=== PATIENT | female | born 1950 | race Caucasian/White ===

== ENCOUNTER 2017-02-10 12:11 | Observation (INO) | payer OTHER ==
[~2017-02-10] VITALS: Ht 170.2 cm; Wt 71.2 kg
[~2017-02-10 12:11] MED LIST: ADVAIR DISKU1 INH; ALBUTEROL2.5 MG/3 M IN; ALPRAZOLAM0.5 MG PO; ATENOLOL100 MG PO; CARAFATE E1 GM/10 ML PO; CELEBREX200 MG PO; CYMBALTA60 MG PO; HYDROCHLOROTHIA25 MG PO; KLOR-CON 1010 MEQ PO; LYRICA100 MG PO; NORCO1 TA1 PO; NORVASC5 MG PO; OMEPRAZOLE40 MG PO; PATIENT'S OWN MEDICA PO; SPIRIVA18 MCG INH; UCERIS9 MG PO; VENTOLIN HFA IN; [UNRECOGNIZED DRUG - OTHER] PO
--- NOTE | 2017-02-10 13:43 | DIAGNOSTIC IMAGING REPORT ---
PROCEDURE: XR CHEST 1 VIEW INDICATION: COPD TECHNIQUE: Single view. COMPARISON: 08/18/2015 FINDINGS: The cardiomediastinal contour is normal. No central venous congestion. The pulmonary arteries are prominent. The lungs hyperinflated and demonstrate left base atelectatic changes with slight clearance of the right base plate-like atelectatic change seen previously. No dense consolidation, pleural effusion or pneumothorax. The osseous structures are intact. IMPRESSION: 1. Mild plate-like atelectasis left lung base with clearance of right base atelectasis. 2. Findings of mild COPD/emphysema.
--- NOTE | 2017-02-10 15:40 | ED NURSING NOTES ---
Clinical Report - Nurses [facility] [address] [place] [address] 02/10/2017 12:11 Patient: CAITY DAVALOS TRIAGE Triage time 12:17. Acuity: LEVEL 3. Chief Complaint: SHORTNESS OF BREATH and DIFFICULTY BREATHING. 12:18 02/10/17. 12:18 02/10/17. Alert. SEPSIS SCREEN: Sepsis Screen. Negative (no infection suspected/documented). --12:38 Neptali Mock R.N. 12:17 02/10/17. BP: 153/74. HR: 80. RR: 18. O2 saturation: 96% on nasal cannula at 2 liters/minute. Temp: 98.2 F (oral). --12:38 Neptali Mock R.N. Weight: 70.3 kg stated. Height/Length: 67 inches Per Patient. BMI: 24.3. --12:17 Neptali Mock R.N. Medications Actonel Oral (Tablet 35 mg) 1 tablet, weekly. --12:26 Neptali Mock R.N. Advair Diskus Inhalation 2 puffs, 2x a day as needed. --12:26 Neptali Mock R.N. Albuterol-Ipratropium Inhalation, [facility]. --12:27 Neptali Mock R.N. Actonel Oral (Tablet 35 mg) 1 tablet, weekly. --12:27 Neptali Mock R.N. Albuterol Sulfate 2.5mg/3mLs, 4x a day, prn SOB. --12:28 Neptali Mock R.N. ALPRAZolam Oral 0.5 mg, daily as needed. --12:29 Neptali Mock R.N. Atenolol Oral 100 mg, daily. --12:29 Neptali Mock R.N. CeleBREX Oral 200 mg, daily as needed. --12:29 Neptali Mock R.N. Cymbalta Oral 60mg, Daily. --12:30 Neptali Mock R.N. Daliresp Oral (Tablet 500 mcg) 1 tablet, daily. --12:30 Neptali Mock R.N. Hydrochlorothiazide Oral 25 mg, daily. --12:30 Neptali Mock R.N. Klor-Con 10 Oral (Tablet Extended Release 10 meq) 2 tablets, daily. --12:31 Neptali Mock R.N. Norvasc Oral 5 mg, daily. --12:31 Neptali Mock R.N. Omeprazole Oral 40 mg, daily. --12:31 Neptali Mock R.N. Spiriva HandiHaler Inhalation (Capsule 18 mcg) 1 capsule, daily. --12:32 Neptali Mock R.N. Theophylline ER Oral 300mg, two times a day. --12:32 Neptali Mock R.N. Uceris Oral 9mg, daily. --12:33 Neptali Mock R.N. Ventolin HFA Inhalation 2 puffs, daily as needed. --12:33 Neptali Mock R.N. Lyrica Oral 150mg , two caps two times a day. --12:34 Neptali Mock R.N. Carafate Oral 100mg/mL, , 10 mLs 4 times a day one hour before meals. --12:34 Neptali Mock R.N. Tramadol HCL Oral 50 mg, , 1-2 orally two times a day as needed. --12:35 Neptali Mock R.N. The following entry was struck by Neptali Mock R.N., 14:13 (02/10/17) Reason - other. <<STRICKEN ENTRY-- Tramadol HCL Oral 50 mg, , 1-2 orally two times a day as needed. --12:35 Neptali Mock R.N. --END STRIKE>> The following entry was struck by Neptali Mock R.N., 14:13 (02/10/17) Reason - other. <<STRICKEN ENTRY-- Tramadol HCL Oral 50 mg, , 1-2 orally two times a day as needed. --12:35 Neptali Mock R.N. --END STRIKE>> The following entry was struck by Neptali Mock R.N., 14:13 (02/10/17) Reason - other. <<STRICHEATH ENTRY-- Tramadol HCL Oral 50 mg, , 1-2 orally two times a day as needed. --12:35 Neptali Mock R.N. --END STRIKE>> The following entry was struck by Neptali Mock R.N., 14:13 (02/10/17) Reason - other. <<STRICHEATH ENTRY-- Tramadol HCL Oral 50 mg, , 1-2 orally two times a day as needed. --12:35 Neptali Mock R.N. --END STRIKE>> The following entry was struck by Neptali Mock R.N., 14:13 (02/10/17) Reason - other. <<LASHELL ENTRY-- Tramadol HCL Oral 50 mg, , 1-2 orally two times a day as needed. --12:35 Neptali Mock R.N. --END STRIKE>> The following entry was struck by Neptali Mock R.N., 14:12 (02/10/17) Reason - other. <<LASHELL ENTRY-- Tramadol HCL Oral 50 mg, , 1-2 orally two times a day as needed. --12:35 Neptali Mock R.N. --END STRIKE>> The following entry was struck by Neptali Mock R.N., 14:12 (02/10/17) Reason - other. <<LASHELL ENTRY-- Tramadol HCL Oral 50 mg, , 1-2 orally two times a day as needed. --12:35 Neptali Mock R.N. --END STRIKE>>. Medication/allergy information source: the patient. --12:38 Neptali Mock R.N. Allergies No Known Drug Allergy. --12:20 Neptali Mock R.N. History Arrived by private vehicle. Historian: patient. Accompanied by family. Primary physician (Salvador). 12:18 02/10/17. ( Wednesday night SOB, pt with history of COPD. Went to PCP who sent pt here.). Treatment DRAPERY INSPECTOR: (Nebulizer). PAST MEDICAL HX: Immunizations: up-to-date. SOCIAL HX: Smoker- current status unknown (18 months ago quit). Regular alcohol use; consumes four beers a day. No drug use. No infectious disease exposure. ABUSE ASSESSMENT: No report of abuse. FALL RISK ASSESSMENT: Fall risk assessment completed. No fall risk identified. NUTRITIONAL RISK ASSESSMENT: The nutritional risk assessment revealed no deficiencies. FUNCTIONAL ASSESSMENT: Functional assessment: no impairments noted. LEARNING NEEDS ASSESSMENT: The learning needs assessment revealed no barriers. SKIN INTEGRITY ASSESSMENT: Skin integrity risk assessment completed. No skin integrity risk identified. --12:38 Neptali Mock R.N. PROBLEMS: COPD - Chronic Obstructive Pulmonary Disease. Hypertension. --12:21 Neptali Mock R.N. Stress incontinence. --12:22 Neptali Mock R.N. Fibromyalgia. --12:22 Neptali Mock R.N. Raynaud's Phenomenon. --12:23 Neptali Mock R.N. Asthma. Colitis. Esophagitis. Degenerative Joint Disease. --12:24 Neptali Mock R.N. Home oxygen. --12:25 Neptali Mock R.N. ADDITIONAL SURGERIES: Appendectomy. Hysterectomy. Tonsillectomy. --12:24 Neptali Mock R.N. Abd Surgery. Back Surgery. --12:25 Neptali Mock R.N. Assessment 12:18 02/10/17. --12:38 Neptali Mock R.N. Interventions 12:18 02/10/17. 12:02/10/17. ID and allergy band on patient. To treatment room. --12:38 Neptali Mock R.N. PHYSICAL ASSESSMENT 12:19 02/10/17. To room via wheelchair. GENERAL / NEURO / PSYCH: Alert. Oriented X 4. RESPIRATORY: No respiratory distress. Mild respiratory distress. The patient can speak in full sentences. SKIN: Skin is warm and dry. --12:19 Neptali Mock R.N. NURSING PROGRESS NOTES 12:20 02/10/17. The plan of care for this patient has been created. vehicle monitor technician, pulse oximeter and NIBP monitor placed on patient; monitor alarms on. Patient gowned. Head of bed elevated. Two patient identifiers checked. Call light placed in reach. Side rails up x 2. Bed placed in lowest position. Brakes of bed on. --12:20 Neptali Mock R.N. 12:20 02/10/17. Patient ready for evaluation- chart flagged and notification provided. --12:20 Neptali Mock R.N. 12:23 02/10/17. EKG time: (1224 PM). EKG was ordered, performed by a tech and shown to the ED physician. --12:23 Neptali Mock R.N. 13:02 02/10/2017 ALBUTEROL NEB W ATROVENT Neb TX 1 unit dose given. Given by the respiratory therapist. Allergies verified and confirmed 5 rights. --13:07 Neptali Mock R.N. 13:03 02/10/2017 Site #1 started via IV in the left antecubital space with an 20g angiocath, with aseptic technique and good blood return; one attempt. Blood drawn: rainbow set. Labeled in the presence of the patient and sent to the lab. Saline lock flushed with 10 mL saline. --13:13 Neptali Mock R.N. 13:17 02/10/17. Cardiac rhythm: normal sinus rhythm. --13:17 Neptali Mock R.N. 13:17 02/10/17. ( Pre peak flow 100, post neb 200 peak flow). --13:18 Neptali Mock R.N. 14:08 02/10/2017 SOLU-MEDROL (MethylPREDNISolone Sodium Succ) IVP 125 mg given over 2 minute(s) via site #1. Allergies verified and confirmed 5 rights. IV patency established. IV site checked: no pain, redness, or swelling. IV flushed thoroughly pre- and post-medication administration. IVP given by RN. --14:08 Neptali Mock R.N. 14:02/10/17. Cardiac rhythm: normal sinus rhythm. --14:09 Neptali Mock R.N. 14:02/10/17. BP: 150/84. HR: 84. RR: 18. O2 saturation: 97% on nasal cannula at 2 liters/minute. --14:09 Neptali Mock R.N. 14:14 02/10/2017 Toradol IVP 30 mg given over 2 minute(s) via site #1. Allergies verified and confirmed 5 rights. IV patency established. IV site checked: no pain, redness, or swelling. IV flushed thoroughly pre- and post-medication administration. IVP given by RN. --14:14 Neptali Mock R.N. 14:22 02/10/2017 Started 2 gm of Rocephin (CefTRIAXone Sodium) IVPB in bag #1 50 mL; at 100 mL/hr over 20 minute(s) via site #1; Allergies verified and confirmed 5 rights. IV patency established. IV site checked: no pain, redness, or swelling. IV flushed thoroughly pre- and post-medication administration. Completed per protocol. --14:22 Neptali Mock R.N. 14:02/10/17. ( Blood culture drawn, abx started). --14:22 Neptali Mock R.N. 14:23 02/10/17. Cardiac rhythm: normal sinus rhythm. --14:23 Neptali Mock R.N. 14:02/10/17. HR: 76. RR: 17. O2 saturation: 100% on nasal cannula at 2 liters/minute. --14:23 Neptali Mock R.N. 14:31 02/10/2017 Rocephin IVPB Discontinued: bag #1 infused. Total amount infused: 50 mL. IV patency established. IV site checked: no pain, redness, or swelling. IV flushed thoroughly. --14:31 Neptali Mock R.N. 14:32 02/10/2017 Started 500 mg of Zithromax (Azithromycin) IVPB in bag #1 250 mL; at 175 mL/hr over 1.5 hour(s) via site #1; Allergies verified and confirmed 5 rights. IV patency established. IV site checked: no pain, redness, or swelling. IV flushed thoroughly pre- and post-medication administration. Completed per protocol. --14:32 Neptali Mock R.N. 14:39 02/10/17. Patient and family informed about reason for wait and about plan of care. --14:39 Neptali Mock R.N. 15:12 02/10/17. Cardiac rhythm: normal sinus rhythm. --15:12 Neptali Mock R.N. 15:11 02/10/17. BP: 151/90. HR: 80. RR: 16. O2 saturation: 98% on nasal cannula at 2 liters/minute. --15:12 Neptali Mock R.N. 15:42 02/10/2017 Dilaudid (HYDROmorphone HCl PF) IVP 0.5 mg given over 2 minute(s) via site #1. Allergies verified, confirmed 5 rights and sedative warning given to the patient. IV patency established. IV site checked: no pain, redness, or swelling. IV flushed thoroughly pre- and post-medication administration. IVP given by RN. --15:52 Neptali Mock R.N. 15:48 02/10/17. ( Pt to be admitted). --15:48 Neptali Mock R.N. 15:48 02/10/17. Patient and family informed about reason for wait and about plan of care. --15:48 Npetali Mock R.N. 17:21 02/10/17. ( Pt ambulated to bathroom and back to room, became SOB, placed back in room with oxygen sats brought up to 98% on 2LNC). --17:21 Neptali Mock R.N. DISPOSITION / DISCHARGE 16:56 02/10/2017 Site #[address] upon transfer; patent. --16:56 Neptali Mock R.N. 16:59 02/10/17. The goals identified in the patient's plan of care were met. Transported via stretcher by transport team with IV and O2. Report was given. Bed requested. Bed obtained. Patient's personal items include, pants, glasses. FALL RISK ASSESSMENT: Fall risk assessment completed. No fall risk identified. --17:01 Neptali Mock R.N. 16:56 02/10/17. BP: 151/71. HR: 80. RR: 18. O2 saturation: 98% on nasal cannula at 2 liters/minute. Temp: 98.2 F (oral). Pain level now: 10/23. --17:01 Neptali Mock R.N. 17:02 02/10/17. Patient's personal items include, Denies having money with patient, cell phone. --17:02 Neptali Mock R.N. Departure time: 17:Feb 10 2017. --17:29 Neptali Mock R.N. Locked/Released at 02/10/2017 17:29 by Neptali Mock R.N.
--- NOTE | 2017-02-10 15:40 | ED CLINICAL REPORT ---
Clinical Report - Physicians/Mid Levels [facility] [address] [place] [address] 02/10/2017 12:11 [id number] Time Seen: 12:53 [place] 2016. Arrived- By private vehicle. Historian- patient. CPT: ER phys charges level 5 plus (#[id number]). EKG interpretation (#[id number]). HISTORY OF PRESENT ILLNESS Chief Complaint: DYSPNEA and HISTORY OF CHRONIC OBSTRUCTIVE PULMONARY DISEASE. 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 The dyspnea is described as moderate and is worsened by walking and exertion, is improved by rest and is improved with oxygen. The patient has had a cough, chest discomfort, dyspnea on exertion and anxiety. She has had moderate amounts of yellow sputum. There has been a change from baseline. No dizziness, tingling, numbness or palpitations. Similar symptoms previously: Milder. Diagnosis: chronic obstructive pulmonary disease. Recent medical care: The patient was seen recently at another facility in the office (today: [facility]). Seen for similar symptoms. Evaluation/treatment: x-rays and labs. Diagnosis: chronic obstructive pulmonary disease. REVIEW OF SYSTEMS No muscle aches, eye irritation, sore throat or throat or nasal discharge. No sinus drainage, nausea, vomiting, abdominal pain or diarrhea. No black stools, bloody stools, fainting episodes, difficulty with urination or skin rash. No enlarged lymph nodes, diabetic symptoms or easy bruising. The patient has had difficulty walking. She has had weakness. Mid-back pain radiating around to both sides. All systems otherwise negative, except as recorded above. PAST HISTORY Hypertension. Pneumonia. No history of renal failure, congestive heart failure, heart disease, neurological disease or GI disease. Chronic obstructive pulmonary disease. Medications: Tramadol HCL Oral 50 mg, , 1-2 orally two times a day as needed. Tramadol HCL Oral 50 mg, , 1-2 orally two times a day as needed. Tramadol HCL Oral 50 mg, , 1-2 orally two times a day as needed. Tramadol HCL Oral 50 mg, , 1-2 orally two times a day as needed. Tramadol HCL Oral 50 mg, , 1-2 orally two times a day as needed. Tramadol HCL Oral 50 mg, , 1-2 orally two times a day as needed. Tramadol HCL Oral 50 mg, , 1-2 orally two times a day as needed. Tramadol HCL Oral 50 mg, , 1-2 orally two times a day as needed. Carafate Oral 100mg/mL, , 10 mLs 4 times a day one hour before meals. Lyrica Oral 150mg , two caps two times a day. Ventolin HFA Inhalation 2 puffs, daily as needed. Uceris Oral 9mg, daily. Theophylline ER Oral 300mg, two times a day. Spiriva HandiHaler Inhalation (Capsule 18 mcg) 1 capsule, daily. Omeprazole Oral 40 mg, daily. Norvasc Oral 5 mg, daily. Klor-Con 10 Oral (Tablet Extended Release 10 meq) 2 tablets, daily. Hydrochlorothiazide Oral 25 mg, daily. Daliresp Oral (Tablet 500 mcg) 1 tablet, daily. Cymbalta Oral 60mg, Daily. CeleBREX Oral 200 mg, daily as needed. Atenolol Oral 100 mg, daily. ALPRAZolam Oral 0.5 mg, daily as needed. Albuterol Sulfate 2.5mg/3mLs, 4x a day, prn SOB. Actonel Oral (Tablet 35 mg) 1 tablet, weekly. Albuterol-Ipratropium Inhalation, neb. Advair Diskus Inhalation 2 puffs, 2x a day as needed. Actonel Oral (Tablet 35 mg) 1 tablet, weekly. Allergies: No Known Drug Allergy. SOCIAL HISTORY Former smoker. ADDITIONAL NOTES The nursing notes have been reviewed. PHYSICAL EXAM Vital Signs: 02/10/2017 12:17 BP: 153/74. HR: 80. RR: 18. O2 saturation: 96%. Temp: 98.2 F. Appearance: Alert. Anxious. Patient in moderate distress. Eyes: Eyes normal inspection. ENT: Nose normal. Pharynx normal. Neck: Normal inspection. CVS: Normal heart rate and rhythm. Heart sounds normal. Pulses normal. Respiratory: Moderate respiratory distress with anxiety and tachypnea. Expiratory moderate bilateral wheezes diffusely. Abdomen: Soft and nontender. Back: Normal inspection. Skin: Skin warm. Normal skin color. No rash. Extremities: Extremities exhibit normal ROM. No calf tenderness. No lower extremity edema. Neuro: Oriented X 3. No motor deficit. No sensory deficit. LABS, X-RAYS, AND EKG EKG: Normal EKG. Chest X-ray: (Plate atx vs early infiltrate. Modearte COPD.). Views: AP (portable). Technique: good. The X-rays were independently viewed by me and interpreted by the radiologist. Laboratory Tests: CBC w Diff: (NGOZI: 02/10/2017 13:00) ( [facility] 02/10/2017 13:20) Final results Test Result Flag Units (Reference) WHITE BLOOD COUNT 6.4 K/uL (4.5-11.5) RED BLOOD COUNT 4.22 M/uL (4.00-5.20) HEMOGLOBIN 12.1 gm/dL (12.0-16.0) HEMATOCRIT 36.5 % (36.0-46.0) MEAN CELL VOLUME 87 fL (80-100) MEAN CORPUSCULAR HGB 29 pg (26-34) MEAN CORPUSCULAR HGB CONC 33 g/dL (31-37) RED CELL DISTRIBUTION WIDTH 13.5 % (11.6-14.8) PLATELET COUNT 394 K/uL (150-400) NEUTROPHIL % 62.5 % (50-75) LYMPH % 22.6 L % (25-40) MONO % 12.4 % (3-14) EOSINOPHIL % 2.0 % (0-4) BASOPHIL % 0.5 % (0-2) [id number]: (NGOZI: 02/10/2017 13:00) ( [facility] 02/10/2017 14:16) Final results Test Result Flag Units (Reference) D-DIMER QUANTITATIVE 0.43 ug/mLFEU (0.27-0.52) The primary value of this quantitative assay relates toits negative predictive value (i.e. exclusion) of pulmonaryembolism/deep vein thrombosis/DIC.Elevated levels of d-dimer may also occur with:, age, cancer, inflammation, liver disease,post-op, infection, hematoma, coronary disease, peripheralarteriopathy, bleeding disorders and thrombolytic treatment.Results should be correlated with other clinical andradiological data.Testing Methodology: Latex Immunoassay CMP: (NGOZI: 02/10/2017 13:00) ( [facility]cvd 02/10/2017 14:26) Final results Test Result Flag Units (Reference) GLUCOSE 98 mg/dL (70-110) BUN 9 mg/dL (7-18) CREATININE 0.6 mg/dL (0.6-1.3) Estimated GFR >60 mL/min Estimated GFR- >60 mL/min Note: Persistent reduction over 3 months in eGFR<60 mL/min/1.73 m2 defines CKD. Patients with eGFR values>=60 mL/min/1.73 m2 may also have CKD if evidence ofpersistent proteinuria. Additional information may be foundat www.[email or web address].org. SODIUM 138 mmol/L (136-145) POTASSIUM 3.7 mmol/L (3.5-5.1) CHLORIDE 98 mmol/L (98-107) CARBON DIOXIDE 30 mmol/L (21-32) CALCIUM 9.2 mg/dL (8.5-10.1) TOTAL PROTEIN 7.6 g/dL (6.4-8.2) ALBUMIN 3.9 g/dL (3.3-5.0) BILIRUBIN, TOTAL 0.4 mg/dL (0.0-1.0) ALKALINE PHOSPHATASE 83 U/L (46-116) AST (SGOT) 42 H U/L (15-37) ALT (SGPT) 39 U/L (12-78) CPK 98 U/L (24-260) TROPONIN I <0.05 L ng/mL (0.00-1.5) TROPONIN REFERENCE RANGE:<0.1 NEGATIVE0.1-1.5 INDETERMINANT>1.5 POSITIVE . PROGRESS AND PROCEDURES Course of Care: patient indicates her usual ambulation tolerance is across her house. Today she couldn't get up and ambulated WITHOUT assistance. IV Solumedrol 125 mg IV Rocephin 2g IV] Zithromax 500 mg IV. Discussed case with patient's primary care provider, (Salvador). Reviewed test results. Agreed upon treatment plan and decision to admit. Health care provider will see patient in hospital. Patient/family counseled. Old medical records ordered. Disposition orders written. Disposition: Admitted to Acute Care. CLINICAL IMPRESSION Acute exacerbation of COPD (emphysematous) (Electronically signed by Jacob Israel MD 02/10/2017 21:56)
--- NOTE | 2017-02-10 15:40 | ED CLINICAL REPORT ---
Clinical Report - Physicians/Mid Levels [facility] [address] [place] [address] 02/10/2017 12:11 [id number] Time Seen: 12:53 [place] 2016. Arrived- By private vehicle. Historian- patient. CPT: ER phys charges level 5 plus (#[id number]). EKG interpretation (#[id number]). HISTORY OF PRESENT ILLNESS Chief Complaint: DYSPNEA and HISTORY OF CHRONIC OBSTRUCTIVE PULMONARY DISEASE. 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 The dyspnea is described as moderate and is worsened by walking and exertion, is improved by rest and is improved with oxygen. The patient has had a cough, chest discomfort, dyspnea on exertion and anxiety. She has had moderate amounts of yellow sputum. There has been a change from baseline. No dizziness, tingling, numbness or palpitations. Similar symptoms previously: Milder. Diagnosis: chronic obstructive pulmonary disease. Recent medical care: The patient was seen recently at another facility in the office (today: [facility]). Seen for similar symptoms. Evaluation/treatment: x-rays and labs. Diagnosis: chronic obstructive pulmonary disease. REVIEW OF SYSTEMS No muscle aches, eye irritation, sore throat or throat or nasal discharge. No sinus drainage, nausea, vomiting, abdominal pain or diarrhea. No black stools, bloody stools, fainting episodes, difficulty with urination or skin rash. No enlarged lymph nodes, diabetic symptoms or easy bruising. The patient has had difficulty walking. She has had weakness. Mid-back pain radiating around to both sides. All systems otherwise negative, except as recorded above. PAST HISTORY Hypertension. Pneumonia. No history of renal failure, congestive heart failure, heart disease, neurological disease or GI disease. Chronic obstructive pulmonary disease. Medications: Tramadol HCL Oral 50 mg, , 1-2 orally two times a day as needed. Tramadol HCL Oral 50 mg, , 1-2 orally two times a day as needed. Tramadol HCL Oral 50 mg, , 1-2 orally two times a day as needed. Tramadol HCL Oral 50 mg, , 1-2 orally two times a day as needed. Tramadol HCL Oral 50 mg, , 1-2 orally two times a day as needed. Tramadol HCL Oral 50 mg, , 1-2 orally two times a day as needed. Tramadol HCL Oral 50 mg, , 1-2 orally two times a day as needed. Tramadol HCL Oral 50 mg, , 1-2 orally two times a day as needed. Carafate Oral 100mg/mL, , 10 mLs 4 times a day one hour before meals. Lyrica Oral 150mg , two caps two times a day. Ventolin HFA Inhalation 2 puffs, daily as needed. Uceris Oral 9mg, daily. Theophylline ER Oral 300mg, two times a day. Spiriva HandiHaler Inhalation (Capsule 18 mcg) 1 capsule, daily. Omeprazole Oral 40 mg, daily. Norvasc Oral 5 mg, daily. Klor-Con 10 Oral (Tablet Extended Release 10 meq) 2 tablets, daily. Hydrochlorothiazide Oral 25 mg, daily. Daliresp Oral (Tablet 500 mcg) 1 tablet, daily. Cymbalta Oral 60mg, Daily. CeleBREX Oral 200 mg, daily as needed. Atenolol Oral 100 mg, daily. ALPRAZolam Oral 0.5 mg, daily as needed. Albuterol Sulfate 2.5mg/3mLs, 4x a day, prn SOB. Actonel Oral (Tablet 35 mg) 1 tablet, weekly. Albuterol-Ipratropium Inhalation, neb. Advair Diskus Inhalation 2 puffs, 2x a day as needed. Actonel Oral (Tablet 35 mg) 1 tablet, weekly. Allergies: No Known Drug Allergy. SOCIAL HISTORY Former smoker. ADDITIONAL NOTES The nursing notes have been reviewed. PHYSICAL EXAM Vital Signs: 02/10/2017 12:17 BP: 153/74. HR: 80. RR: 18. O2 saturation: 96%. Temp: 98.2 F. Appearance: Alert. Anxious. Patient in moderate distress. Eyes: Eyes normal inspection. ENT: Nose normal. Pharynx normal. Neck: Normal inspection. CVS: Normal heart rate and rhythm. Heart sounds normal. Pulses normal. Respiratory: Moderate respiratory distress with anxiety and tachypnea. Expiratory moderate bilateral wheezes diffusely. Abdomen: Soft and nontender. Back: Normal inspection. Skin: Skin warm. Normal skin color. No rash. Extremities: Extremities exhibit normal ROM. No calf tenderness. No lower extremity edema. Neuro: Oriented X 3. No motor deficit. No sensory deficit. LABS, X-RAYS, AND EKG EKG: Normal EKG. Chest X-ray: (Plate atx vs early infiltrate. Modearte COPD.). Views: AP (portable). Technique: good. The X-rays were independently viewed by me and interpreted by the radiologist. Laboratory Tests: CBC w Diff: (NGOZI: 02/10/2017 13:00) ( [facility] 02/10/2017 13:20) Final results Test Result Flag Units (Reference) WHITE BLOOD COUNT 6.4 K/uL (4.5-11.5) RED BLOOD COUNT 4.22 M/uL (4.00-5.20) HEMOGLOBIN 12.1 gm/dL (12.0-16.0) HEMATOCRIT 36.5 % (36.0-46.0) MEAN CELL VOLUME 87 fL (80-100) MEAN CORPUSCULAR HGB 29 pg (26-34) MEAN CORPUSCULAR HGB CONC 33 g/dL (31-37) RED CELL DISTRIBUTION WIDTH 13.5 % (11.6-14.8) PLATELET COUNT 394 K/uL (150-400) NEUTROPHIL % 62.5 % (50-75) LYMPH % 22.6 L % (25-40) MONO % 12.4 % (3-14) EOSINOPHIL % 2.0 % (0-4) BASOPHIL % 0.5 % (0-2) [id number]: (NGOZI: 02/10/2017 13:00) ( [facility] 02/10/2017 14:16) Final results Test Result Flag Units (Reference) D-DIMER QUANTITATIVE 0.43 ug/mLFEU (0.27-0.52) The primary value of this quantitative assay relates toits negative predictive value (i.e. exclusion) of pulmonaryembolism/deep vein thrombosis/DIC.Elevated levels of d-dimer may also occur with:, age, cancer, inflammation, liver disease,post-op, infection, hematoma, coronary disease, peripheralarteriopathy, bleeding disorders and thrombolytic treatment.Results should be correlated with other clinical andradiological data.Testing Methodology: Latex Immunoassay CMP: (NGOZI: 02/10/2017 13:00) ( [facility] 02/10/2017 14:26) Final results Test Result Flag Units (Reference) GLUCOSE 98 mg/dL (70-110) BUN 9 mg/dL (7-18) CREATININE 0.6 mg/dL (0.6-1.3) Estimated GFR >60 mL/min Estimated GFR- >60 mL/min Note: Persistent reduction over 3 months in eGFR<60 mL/min/1.73 m2 defines CKD. Patients with eGFR values>=60 mL/min/1.73 m2 may also have CKD if evidence ofpersistent proteinuria. Additional information may be foundat www.kidney.org. SODIUM 138 mmol/L (136-145) POTASSIUM 3.7 mmol/L (3.5-5.1) CHLORIDE 98 mmol/L (98-107) CARBON DIOXIDE 30 mmol/L (21-32) CALCIUM 9.2 mg/dL (8.5-10.1) TOTAL PROTEIN 7.6 g/dL (6.4-8.2) ALBUMIN 3.9 g/dL (3.3-5.0) BILIRUBIN, TOTAL 0.4 mg/dL (0.0-1.0) ALKALINE PHOSPHATASE 83 U/L (46-116) AST (SGOT) 42 H U/L (15-37) ALT (SGPT) 39 U/L (12-78) CPK 98 U/L (24-260) TROPONIN I <0.05 L ng/mL (0.00-1.5) TROPONIN REFERENCE RANGE:<0.1 NEGATIVE0.1-1.5 INDETERMINANT>1.5 POSITIVE . PROGRESS AND PROCEDURES Course of Care: patient indicates her usual ambulation tolerance is across her house. Today she couldn't get up and ambulated WITHOUT assistance. IV Solumedrol 125 mg IV Rocephin 2g IV] Zithromax 500 mg IV. Discussed case with patient's primary care provider, (Salvador). Reviewed test results. Agreed upon treatment plan and decision to admit. Health care provider will see patient in hospital. Patient/family counseled. Old medical records ordered. Disposition orders written. Disposition: Admitted to Acute Care. CLINICAL IMPRESSION Acute exacerbation of COPD (emphysematous) (Electronically signed by Jacob Israel MD 02/10/2017 21:56)
--- NOTE | 2017-02-10 15:41 | ED ORDER SUMMARY ---
..... 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 per protocol) (12:57 JBoardley R.N.) Oxygen (2 L/min) (NC) (12:57 02/10/2017 JBoardley R.N. per protocol) (12:57 JBoardley R.N.) Pulse oximeter (12:57 02/10/2017 JBoardley R.N. per protocol) (12:57 JBoardley R.N.) EKG - ER Stat (12:57 02/10/2017 JBoardley R.N. per protocol) (12:57 JBoardley R.N.) Chest 1V Urgent (13:07 02/10/2017 JBoardley R.N. per protocol) (Ack 13:09 KHoerner) (13:18 JBoardley R.N.) CBC w Diff Urgent (13:07 02/10/2017 JBoardley R.N. per protocol) (Ack 13:09 KHoerner) (13:13 JBoardley R.N.) CMP Urgent (13:07 02/10/2017 JBoardley R.N. per protocol) (Ack 13:09 KHoerner) (13:13 JBoardley R.N.) CPK Urgent (14:01 02/10/2017 Cindy RAMOS) (14:01 KHoerner) Troponin-I Urgent (14:02/10/2017 Cindy RAMOS) (14:01 KHoerner) Blood Culture (No) (N/A) Urgent (14:01 02/10/2017 Cindy RAMOS) (Ack 14:05 KHoerner) (14:16 KHoerner) D-Dimer Urgent (14:04 02/10/2017 Cindy RAMOS) (14:04 Ella) MEDICATION ORDERS: Albuterol Neb w Atrovent 1 unit dose with peak flow pre and post (NOW) (12:58 02/10/2017 Sunshine R.N. verbal order read back to Cindy RAMOS) (13:07 SRINIVASAoarkeara R.N.) IV FLUIDS: IV Saline Lock (12:57 02/10/2017 JBarnoldo R.N. per protocol) (Ack 12:57 SRINIVASAoardley R.N.) (13:13 SRINIVASAoardley R.N.) Solu-MEDROL IV 125 mg (NOW) (14:01 02/10/2017 Cindy RAMOS) (Ack 14:05 JBoardley R.N.) (14:08 JBoardley R.N.) Rocephin IV 2 gm/50mL (NOW) (14:01 02/10/2017 Cindy RAMOS) (Ack 14:08 JBoardley R.N.) (14:22 JBoardley R.N.) Zithromax IV 500 mg/250 mL (NOW) (14:02 02/10/2017 Cindy RAMSO) (Ack 14:08 JBoardley R.N.) (14:32 JBoardley R.N.) Toradol IV 30 mg (NOW) (14:12 02/10/2017 Cindy RAMOS) (14:14 JBoardley R.N.) Dilaudid IV 0.5 mg (NOW) (15:41 02/10/2017 Cindy RAMOS) (Ack 15:43 JBoardley R.N.) (15:52 JBoardley R.N.) ORDER SHEET NOTES: [Electronically signed by Neptali Mock R.N. (17:29 02/10/2017)] [Electronically signed by Jacob Israel MD (21:56 02/10/2017)] [Electronically locked/signed by Neptali Mock R.N. (17:29 02/10/2017)]
--- NOTE | 2017-02-10 15:41 | ED ORDER SUMMARY ---
..... 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 per protocol) (12:57 JBoardley R.N.) Oxygen (2 L/min) (NC) (12:57 02/10/2017 JBoardley R.N. per protocol) (12:57 JBoardley R.N.) Pulse oximeter (12:57 02/10/2017 JBoardley R.N. per protocol) (12:57 JBoardley R.N.) EKG - ER Stat (12:57 02/10/2017 JBoardley R.N. per protocol) (12:57 JBoardley R.N.) Chest 1V Urgent (13:07 02/10/2017 JBoardley R.N. per protocol) (Ack 13:09 KHoerner) (13:18 JBoardley R.N.) CBC w Diff Urgent (13:07 02/10/2017 JBoardley R.N. per protocol) (Ack 13:09 KHoerner) (13:13 JBoardley R.N.) CMP Urgent (13:07 02/10/2017 JBoardley R.N. per protocol) (Ack 13:09 KHoerner) (13:13 JBoardley R.N.) CPK Urgent (14:01 02/10/2017 Cindy RAMOS) (14:01 KHoerner) Troponin-I Urgent (14:02/10/2017 Cindy RAMOS) (14:01 KHoerner) Blood Culture (No) (N/A) Urgent (14:01 02/10/2017 Cindy RAMOS) (Ack 14:05 KHoerner) (14:16 KHoerner) D-Dimer Urgent (14:04 02/10/2017 Cindy RAMOS) (14:04 Ella) MEDICATION ORDERS: Albuterol Neb w Atrovent 1 unit dose with peak flow pre and post (NOW) (12:58 02/10/2017 Sunshine R.N. verbal order read back to Cindy RAMOS) (13:07 SRINIVASAoarkeara R.N.) IV FLUIDS: IV Saline Lock (12:57 02/10/2017 JBarnoldo R.N. per protocol) (Ack 12:57 SRINIVASAoardley R.N.) (13:13 SRINIVASAoardley R.N.) Solu-MEDROL IV 125 mg (NOW) (14:01 02/10/2017 Cindy RAMOS) (Ack 14:05 JBoardley R.N.) (14:08 JBoardley R.N.) Rocephin IV 2 gm/50mL (NOW) (14:01 02/10/2017 Cindy RAMOS) (Ack 14:08 JBoardley R.N.) (14:22 JBoardley R.N.) Zithromax IV 500 mg/250 mL (NOW) (14:02 02/10/2017 Cindy RAMOS) (Ack 14:08 JBoardley R.N.) (14:32 JBoardley R.N.) Toradol IV 30 mg (NOW) (14:12 02/10/2017 Cindy RAMOS) (14:14 JBoardley R.N.) Dilaudid IV 0.5 mg (NOW) (15:41 02/10/2017 Cindy RAMOS) (Ack 15:43 JBoardley R.N.) (15:52 JBoardley R.N.) ORDER SHEET NOTES: [Electronically signed by Neptali Mock R.N. (17:29 02/10/2017)] [Electronically signed by Jacob Israel MD (21:56 02/10/2017)] [Electronically locked/signed by Neptali Mock R.N. (17:29 02/10/2017)]
[2017-02-10 17:51] VITALS: BP 163/75
[2017-02-10] MEDS ORDERED: ACTONEL35 MG PO (19:12)
[2017-02-10] MEDS ORDERED: ADVAIR DISKU1 INH (19:14)
[2017-02-10] MEDS ORDERED: IPRATROPIUM BROMIDE/ (19:18)
[2017-02-10] MEDS ORDERED: CARAFATE E1 GM/10 ML PO (19:25)
[2017-02-10] MEDS ORDERED: DALIRESP500 MCG PO (19:28)
[2017-02-10] MEDS ORDERED: OMEPRAZOLE20 MG PO (19:33)
[2017-02-10] MEDS ORDERED: TRAMADOL HCL50 MG PO (19:37)
[2017-02-10] MEDS ORDERED: UCERIS9 MG PO (19:39)
[2017-02-10] MEDS ORDERED: VENTOLIN HFA IN (19:40)
--- NOTE | 2017-02-10 21:56 | ED DISCHARGE INSTRUCTIONS ---
Patient: CAITY DAVALOS General Instructions [facility] VisitID: [id number] [place] [address] 66y, F Registration Date/Time: 02/10/2017 Acute exacerbation of COPD (emphysematous) ADDITIONAL INFORMATION COPD Flare Both emphysema and chronic bronchitis are forms of chronic obstructive pulmonary disease (COPD). It is most often caused by many years of smoking tobacco. Many things can make your lung disease suddenly get worse. These causes include the common cold, pneumonia, acute bronchitis, missing doses of your regular breathing medicines, or being around smoke, dust, or other air pollutants. A COPD flare may last 7 to 14 days. Your doctor may prescribe medicineto relax your airways and prevent wheezing. Your doctor may also prescribe antibiotics if he or she thinks you havea bacterial infection. Prednisone can helpease inflammation in a severe attack. Home care Here are things you can do at home: Drink lots of water or other fluids (at least 10 glasses a day) during an attack. This will loosen lung secretions and make it easier to breathe. If you have heart or kidney disease, check with your doctor before you drink extra amounts of fluids. Take prescribed medicine exactly at the times advised. If you have a hand-held inhaler or aerosol breathing medicine, don't use it more than once every 4 hours, unless your doctor tells you to. If you were givenan antibiotic or prednisone, take all of the medicine even if you are feeling better after a few days. Don't smoke. Avoid being aroundthe smoke of others. If you were given an inhaler, use it exactly as directed. If you need to use it more often than prescribed, your condition may be getting worse. Call your doctor. Follow-up care Follow up with your health care provider.If you are 65 or older or have chronic asthma or COPD, you should get a single dose of the pneumococcal vaccine and aflu shot each year. You may need a second dose of the pneumococcal vaccine if you had the first dose at a younger age. Your health care provider will let you know if you need a second dose. For all other people, the usual dose for the pneumococcal vaccine is 1 or 2 shots. Yourprovider can discuss this with you. When to seek medical care Get prompt medical attention ifany of these occur: Increased wheezing or shortness of breath Need to use your inhalers more often than usual without relief Fever of 100.4F(38C) or higher, or as directed by your health care provider Coughing up lots of dark-colored or bloody sputum (mucus) Chest pain with each breath You do not start to improve within 24 hours You have been given the following additional information: COPD Flare (Electronically signed by Jacob Israel MD 02/10/2017 21:56)
--- NOTE | 2017-02-10 21:56 | ED MED RECONCILIATION SUMMARY ---
Patient: CAITY DAVALOS Medication Reconciliation Report [facility] VisitID: [id number] [address] [place] [address] 66y, F Registration Date/Time: 02/10/2017 Weight: 70.3 kg Height/Length: 67 in. BMI: 24.3 ALLERGIES: No Known Drug Allergy The patient's Home Medications are listed below: THE FOLLOWING MEDICATIONS NEED TO BE RECONCILED: Actonel Oral (35 mg) 1 tablet, weekly Actonel Oral (35 mg) 1 tablet, weekly Advair Diskus Inhalation 2 puffs, 2x a day Albuterol Sulfate 2.5mg/3mLs, 4x a day, prn SOB Albuterol-Ipratropium Inhalation, neb ALPRAZolam Oral 0.5 mg, daily Atenolol Oral 100 mg, daily Carafate Oral 100mg/mL, 10 mLs 4 times a day one hour before meals CeleBREX Oral 200 mg, daily Cymbalta Oral 60mg, Daily Daliresp Oral (500 mcg) 1 tablet, daily Hydrochlorothiazide Oral 25 mg, daily Klor-Con 10 Oral (10 meq) 2 tablets, daily Lyrica Oral 150mg , two caps two times a day Norvasc Oral 5 mg, daily Omeprazole Oral 40 mg, daily Spiriva HandiHaler Inhalation (18 mcg) 1 capsule, daily Theophylline ER Oral 300mg, two times a day Tramadol HCL Oral 50 mg, 1-2 orally two times a day as needed Uceris Oral 9mg, daily Ventolin HFA Inhalation 2 puffs, daily The source(s) of the original Home Medication information: patient The following Medications were given to the patient in the Emergency Department: ALBUTEROL NEB W ATROVENT Neb TX 1 unit dose, administered: 02/10/2017 1:02:00 PM SOLU-MEDROL [IVP] IVP 125 mg, administered: 02/10/2017 2:08:00 PM Toradol [IVP] IVP 30 mg, administered: 02/10/2017 2:14:00 PM Rocephin [IVPB] IVPB bolus 0, then 2 gm 100 mL/hr, administered: 02/10/2017 2:22:00 PM Zithromax [IVPB] IVPB bolus 0, then 500 mg 175 mL/hr, administered: 02/10/2017 2:32:00 PM Dilaudid [IVP] IVP 0.5 mg, administered: 02/10/2017 3:42:00 PM The following Medications were prescribed to the patient: None.
--- NOTE | 2017-02-10 21:56 | ED MAR SUMMARY ---
..... Medication Administration Record [facility] [address] [place] [address] Patient: CAITY DAVALOS Visit ID: [id number] 66y, F Weight: 70.3 kg Height/Length: 67 in BMI: 24.3 ALLERGIES: No Known Drug Allergy Given 13:02 02/10/2017 Neptali Mock R.N. Medication Administered: ALBUTEROL NEB W ATROVENT, Dose: 1 unit dose Neb TX. Medication Ordered: Albuterol Neb w Atrovent 1 unit dose with peak flow pre and post (NOW). Given 14:08 02/10/2017 Neptali Mock R.N. Medication Administered: SOLU-MEDROL [IVP] (METHYLPREDNISOLONE SODIUM SUCC), Dose: 125 mg IVP over 2 minute(s), Site: #1 left AC. Medication Ordered: Solu-MEDROL IV 125 mg (NOW). Given 14:14 02/10/2017 Neptali Mock R.N. Medication Administered: TORADOL [IVP], Dose: 30 mg IVP over 2 minute(s), Site: #1 left AC. Medication Ordered: Toradol IV 30 mg (NOW). Start 14:22 02/10/2017 Neptali Mock R.N., Stop 14:31 02/10/2017 Neptali Mock R.N. Medication Administered: ROCEPHIN [IVPB] (CEFTRIAXONE SODIUM), Dose: 2 gm IVPB over 20 minute(s), Rate: 100 mL/hr, Dispensed: 50 mL bag, Site: #1 left AC. Medication Ordered: Rocephin IV 2 gm/50mL (NOW). Start 14:32 02/10/2017 Neptali Mock R.N. Medication Administered: ZITHROMAX [IVPB] (AZITHROMYCIN), Dose: 500 mg IVPB over 1.5 hour(s), Rate: 175 mL/hr, Dispensed: 250 mL bag, Site: #1 left AC. Medication Ordered: Zithromax IV 500 mg/250 mL (NOW). Given 15:42 02/10/2017 Neptali Mock R.N. Medication Administered: DILAUDID [IVP] (HYDROMORPHONE HCL PF), Dose: 0.5 mg IVP over 2 minute(s), Site: #1 left AC. Medication Ordered: Dilaudid IV 0.5 mg (NOW).
--- NOTE | 2017-02-10 21:56 | ED MED RECONCILIATION SUMMARY ---
Patient: CAITY DAVALOS Medication Reconciliation Report [facility] VisitID: [id number] [address] [place] [address] 66y, F Registration Date/Time: 02/10/2017 Weight: 70.3 kg Height/Length: 67 in. BMI: 24.3 ALLERGIES: No Known Drug Allergy The patient's Home Medications are listed below: THE FOLLOWING MEDICATIONS NEED TO BE RECONCILED: Actonel Oral (35 mg) 1 tablet, weekly Actonel Oral (35 mg) 1 tablet, weekly Advair Diskus Inhalation 2 puffs, 2x a day Albuterol Sulfate 2.5mg/3mLs, 4x a day, prn SOB Albuterol-Ipratropium Inhalation, neb ALPRAZolam Oral 0.5 mg, daily Atenolol Oral 100 mg, daily Carafate Oral 100mg/mL, 10 mLs 4 times a day one hour before meals CeleBREX Oral 200 mg, daily Cymbalta Oral 60mg, Daily Daliresp Oral (500 mcg) 1 tablet, daily Hydrochlorothiazide Oral 25 mg, daily Klor-Con 10 Oral (10 meq) 2 tablets, daily Lyrica Oral 150mg , two caps two times a day Norvasc Oral 5 mg, daily Omeprazole Oral 40 mg, daily Spiriva HandiHaler Inhalation (18 mcg) 1 capsule, daily Theophylline ER Oral 300mg, two times a day Tramadol HCL Oral 50 mg, 1-2 orally two times a day as needed Uceris Oral 9mg, daily Ventolin HFA Inhalation 2 puffs, daily The source(s) of the original Home Medication information: patient The following Medications were given to the patient in the Emergency Department: ALBUTEROL NEB W ATROVENT Neb TX 1 unit dose, administered: 02/10/2017 1:02:00 PM SOLU-MEDROL [IVP] IVP 125 mg, administered: 02/10/2017 2:08:00 PM Toradol [IVP] IVP 30 mg, administered: 02/10/2017 2:14:00 PM Rocephin [IVPB] IVPB bolus 0, then 2 gm 100 mL/hr, administered: 02/10/2017 2:22:00 PM Zithromax [IVPB] IVPB bolus 0, then 500 mg 175 mL/hr, administered: 02/10/2017 2:32:00 PM Dilaudid [IVP] IVP 0.5 mg, administered: 02/10/2017 3:42:00 PM The following Medications were prescribed to the patient: None.
--- NOTE | 2017-02-10 21:56 | ED MAR SUMMARY ---
..... Medication Administration Record [facility] [address] [place] [address] Patient: CAITY DAVALOS Visit ID: [id number] 66y, F Weight: 70.3 kg Height/Length: 67 in BMI: 24.3 ALLERGIES: No Known Drug Allergy Given 13:02 02/10/2017 Neptali Mock R.N. Medication Administered: ALBUTEROL NEB W ATROVENT, Dose: 1 unit dose Neb TX. Medication Ordered: Albuterol Neb w Atrovent 1 unit dose with peak flow pre and post (NOW). Given 14:08 02/10/2017 Neptali Mock R.N. Medication Administered: SOLU-MEDROL [IVP] (METHYLPREDNISOLONE SODIUM SUCC), Dose: 125 mg IVP over 2 minute(s), Site: #1 left AC. Medication Ordered: Solu-MEDROL IV 125 mg (NOW). Given 14:14 02/10/2017 Neptali Mock R.N. Medication Administered: TORADOL [IVP], Dose: 30 mg IVP over 2 minute(s), Site: #1 left AC. Medication Ordered: Toradol IV 30 mg (NOW). Start 14:22 02/10/2017 Neptali Mock R.N., Stop 14:31 02/10/2017 Neptali Mock R.N. Medication Administered: ROCEPHIN [IVPB] (CEFTRIAXONE SODIUM), Dose: 2 gm IVPB over 20 minute(s), Rate: 100 mL/hr, Dispensed: 50 mL bag, Site: #1 left AC. Medication Ordered: Rocephin IV 2 gm/50mL (NOW). Start 14:32 02/10/2017 Neptali Mock R.N. Medication Administered: ZITHROMAX [IVPB] (AZITHROMYCIN), Dose: 500 mg IVPB over 1.5 hour(s), Rate: 175 mL/hr, Dispensed: 250 mL bag, Site: #1 left AC. Medication Ordered: Zithromax IV 500 mg/250 mL (NOW). Given 15:42 02/10/2017 Neptali Mock R.N. Medication Administered: DILAUDID [IVP] (HYDROMORPHONE HCL PF), Dose: 0.5 mg IVP over 2 minute(s), Site: #1 left AC. Medication Ordered: Dilaudid IV 0.5 mg (NOW).
[2017-02-10 22:42] VITALS: BP 151/76
--- NOTE | 2017-02-10 22:53 | NUR ---
PT ARRIVE TO ROOM 210B VIA STRETCHER FROM ED AROUND 1750 VIA FACILITY TECH TRANSPORT. PT WAS ABLE TO AMBULATE WITH WALKER FROM STRETCHER IN [place]URNS TO BED AND TO BATHROOM. A&OX4. SOB WITH EXERTION. SCHEDULED NEBS. CALM AND COOPERATIVE WITH CARE. HOME MEDS PLACED IN LOCKED MED CLOSET. WCTM.
[2017-02-11 03:08] VITALS: BP 137/57
--- NOTE | 2017-02-11 04:05 | NUR ---
PT A&O X3, ABLE TO MAKE NEEDS KNOWN, PLEASANT AND COOPERATIVE. WHEEZES NOTED THROUGHOUT ALL LUNG HARPER, ON 2L O2 VIA NC. C/O MODERATE HEADACHE AND NECK AND BACK PAIN, REQUESTED PRN PERCOCET WITH EFFECTIVE RESULTS. SBA FOR TRANSFERS, USES [facility] FOR AMBULATION. C/O SOB WITH ACTIVITY R/T TRANSFER TO [facility]. RESOLVED QUICKLY WITH PURSE LIPPED BREATHING. RUE SKIN TEARS STABLE, COVERED WITH TRANSPARENT DRESSINGS. ON TELE, SINUS RHYTHM. VSS.
[2017-02-11 06:35] VITALS: BP 165/73
--- NOTE | 2017-02-11 07:01 | Progress Note ---
Subjective General ADMITTED THROUGH ER YESTERDAY c/o EUBANKS, NECK PAIN,BACK PAIN. ALSO HAD NOTED A FLAIR UP OF HER BREATHING WITH INCREASED SOB, ARORA, COUGH AND PHLEGM WITH PROGRESSION FROM WHITE TO YELLOW. CULTURES WERE TAKEN. CXR = COPD W/O PNEUMONIA /NAD Constitutional Chills (AWFUL SWEATS AND CHILLS X 6+ M), Sweats (AWFUL DRENCHING SWEATS AND CHI) , Weakness, Malaise. Denies: Fever, Other. Eyes Denies: Pain, Vision Change, Conjunctival Inflammation, Eyelid Inflammation, Redness, Other. Respiratory Pleuritic Pain. Denies: Cough, SOB w/exertion, Wheezing, Hemoptysis (RARELY FROM NOSE BLEED), Sputum. Cardiovascular Chest Pain. Denies: Palpitations, Orthopnea, PND, Edema, Light-headedness. Gastrointestinal Nausea, Diarrhea, Constipation, Other (IRRITABLE BOWEL). Denies: Vomiting, Abdominal Pain, Melena, Hematochezia. Genitourinary Frequency, Incontinence. Denies: Dysuria, Hematuria, Retention. Musculoskeletal Denies: Neck Pain, Shoulder Pain, Back Pain. Skin Bruising. Denies: Rash, Lesions, Jaundice, Other. Neurological Confusion, Seizures, Other (TINGLING IN FEET, LEGS ARMS, A). Denies: Weakness, Numbness, Incoordination, Change in speech. Physical Exam Vital Signs / I&Os Vital Signs Date Time Temp Pulse Resp B/P Pulse O2 O2 Flow FiO2 Ox Delivery Rate 02/11 0635 97.5 93 18 165/73 95 Nasal 2.0 Cannula 02/11 0546 2.0 02/11 0308 98.2 80 16 137/57 98 Nasal 2.0 Cannula 02/11 0228 Nasal 2.0 Cannula 02/10 2304 2.0 02/10 2246 Nasal 2.0 Cannula 02/10 2242 98.1 89 18 151/76 96 Nasal 2.0 Cannula 02/10 2002 2.0 02/10 1751 97.9 87 24 163/75 95 Nasal 2.0 Cannula 02/10 1659 2.0 02/10 1303 2.0 I&O 02/10 0800 02/10 1600 02/11 0000 Intake Total 0 Output Total 0 Balance 0 General Appearance Alert, Oriented X3, Cooperative, Mild distress Lungs EXP WHEEZING Breasts Symmetric Neck Supple, No JVD, No thyromegaly, No lymphadenopathy, 2+ carotid pulse wo bruit Cardiovascular Regular rate and rhythm, No murmurs, gallops, rubs Abdomen Normal exam, Soft, No tenderness, No guarding, No masses Extremities Normal exam, No cyanosis, No clubbing, No edema, Strength = upper ext's, Strength = lower ext's Skin No Rashes, No Breakdown, No Significant Lesions Neurological Normal exam, Normal speech, Normal tone, Sensation intact, Strength 5/5 x4 ext's, No lateralizing signs Psych/Mental Status Mental status normal, DEPRESSED. ALMOST READY TO "THROUGH IN THE TOWEL". NO QUALITY OF LIFE., ALWAYS IN PAIN Other REFER TO PROVIDED CHART NOTE FOR PMHX, SOC HX, FAM HX MEDS AND ALLERGIES Assessment and Plan Problem List 1. COPD exacerbation Plan PULMONARY TX, CHANGE TO PREDNISONE, HAS HOME O2, IMPERIC ABC 2. Lymphocytic colitis Plan BUDESONIDE AT HOME 3. Hypertension Plan MILD ELEVATED WITH PAIN TODAY 4. Osteoarthritis Plan CSPINE XRAY 5. Fibromyalgia Plan PT CHOSES TO ADD NARCOTIC FOR PAIN CONTROL DESPITE RISKS 6. Anxiety Plan MAY ADJUST OS OP
--- NOTE | 2017-02-11 10:04 | DIAGNOSTIC IMAGING REPORT ---
PROCEDURE: XR CERVICAL SPINE 4 OR 5 VIEW INDICATION: NECK PAIN TECHNIQUE: Five views. COMPARISON: None. FINDINGS: Normal alignment without fracture. Moderate degenerative changes most prominent at C3-4 and C4-5. Severe right and moderate left C4-5 and mild bilateral C5-6 foraminal stenosis. Odontoid, lateral masses of C1 and prevertebral soft tissues are normal. Severe bilateral carotid bifurcation calcific atherosclerosis. IMPRESSION: 1. Degenerative changes with bilateral foraminal stenosis 2. Bilateral carotid calcific atherosclerosis
[2017-02-11 10:59] VITALS: BP 113/72
[2017-02-11 11:16] VITALS: BP 149/76
--- NOTE | 2017-02-11 13:30 | Provider's Discharge Care Plan ---
Problem, Goal, Plan Problem List 1. COPD exacerbation Goals: Prevent disease progress Instructions: Follow up as needed (CONTINUE NEB EVERY4-6 HOURS. ), Follow up as directed, Take meds as directed, GET ANTIBIOTIC AND PREDNISONE AT THE PHARMACY 2. Acute exacerbation of chronic obstructive pulmonary disease (COPD) Goals: No readmissions (MEDS AT PHARMACY) 3. Osteoarthritis Goals: Improve disease control (OXYCODONE Rx WILL BE AT [facility]), Improve function (OXYCODONE Rx WILL BE AT [facility]) 4. Fibromyalgia Goals: Improve disease control (YOU HAVE CHOSEN TO START A DOT) Instructions: YOU HAVE CHOSEN TO START A NARCOTIC FOR PAIN 5. Anxiety Goals: Improved health/wellness, CAUTIOUS USE OF XXANAX 6. Depressed Goals: Improved health/wellness, WE WILL DISCUSS OTHER POSSIBLE TREATMENTS AT F/U
--- NOTE | 2017-02-11 14:28 | NUR ---
SPOKE WITH DR. CHATO MD SAID IF PATIENT CAN AMBULATE TO BATHROOM TO DISCHARGE HOME, PATIENT AMBULATED TO BATHROOM SEVERAL TIMES TODAY SATS REMAIN IN NORMAL LEVELS AT REST AND AMBULATING ON BASELINE 02 AT 2L. TO DISCHARGE HOME SOON ARRIVES.
--- NOTE | 2017-02-11 14:57 | NUR ---
IV DC'D TO R HAND, CATHETER TIP INTACT. DR. REIS INSTRUCTED PATIENT TO [employer] TE[employer]ER 2 RX AT [facility] AND WILL HAVE THOSE AVAILABLE FOR HER TODAY. PATIENT GIVEN ALL PERSONAL BELONGINGS INCLUDING MEDICATION FROM THE [facility], AND DC PACKET WITH INSTRUCTIONS. BROUGHT HOME 02 TANK, AND PATIENT WAS ESCORTED OUT AT 1457 IN WHEEL CHAIR WITH SHEET METAL PATTERN CUTTER. GIVEN PAIN MEDICATION PRIOR TO LEAVING.
== END 2017-02-11 15:00 | disposition home or self-care (01) ==
LOC: ED SRH 12:11 → ACUTE2 SRH 16:00 → TRANS SRH 16:00 → ACUTE2 SRH 18:36
PROVIDERS: ADMIT Emergency Medicine
DX: J44.1 Chronic obstructive pulmonary disease with (acute) exacerbation (principal); R07.81 Pleurodynia; F41.9 Anxiety disorder, unspecified; I10 Essential (primary) hypertension; K52.832 Lymphocytic colitis; M79.7 Fibromyalgia; Z87.891 Personal history of nicotine dependence
CPT/HCPCS: 29230; 29259; 29264; 90065; 90074; 90100; 90616; 91556; 92610; 95059